=== PATIENT | female | born 1955 | race Caucasian/White ===

== ENCOUNTER → 2016-11-13 | Outpatient (CLI) | payer BC ==
[~2016-11-13] MED LIST: SYNTHROID0.05 MG/TA PO; TEGRETOL 1100 MG/TAB PO
== END ==
LOC: COL.RAD 09:31
DX: N94.9 Unspecified condition associated with female genital organs and menstrual cycle (principal); N94.10 Unspecified dyspareunia; K76.89 Other specified diseases of liver; N83.9 Noninflammatory disorder of ovary, fallopian tube and broad ligament, unspecified

== ENCOUNTER → 2016-12-01 | Outpatient (CLI) | payer BC | LOC: COL.CARD 16:49 | DX: Z01.810 Encounter for preprocedural cardiovascular examination (principal); Z01.812 Encounter for preprocedural laboratory examination; R19.09 Other intra-abdominal and pelvic swelling, mass and lump ==

== ENCOUNTER → 2017-06-18 | Outpatient (CLI) | payer BC | LOC: COL.RAD 06-11 08:00 | DX: C56.1 Malignant neoplasm of right ovary (principal) ==

== ENCOUNTER → 2017-09-17 | Outpatient (CLI) | payer BC | LOC: MC.RAD 08-06 11:00 | DX: Z12.31 Encounter for screening mammogram for malignant neoplasm of breast (principal) ==

== ENCOUNTER → 2019-07-04 | Outpatient (CLI) | payer BC | LOC: MC.RAD 11:03 | DX: Z12.31 Encounter for screening mammogram for malignant neoplasm of breast (principal) ==

== ENCOUNTER 2019-09-05 07:45 | Day surgery (SDC) | payer BC ==
[~2019-09-05] VITALS: Ht 154.9 cm; Wt 52.7 kg
[2019-09-05 08:13] VITALS: BP 114/72; PULSE 75; TEMP 97.6
[2019-09-05] MEDS ORDERED: [UNRECOGNIZED DRUG - OTHER] PO (08:35)
[2019-09-05] MEDS ORDERED: D3-5050000 IU PO (08:36)
[2019-09-05] MEDS ORDERED: CALCIUM CARBON650 M2 PO (08:36)
[2019-09-05] MEDS ORDERED: ASPIRIN 81M81 MG/TA2 PO (08:37)
[2019-09-05] MEDS ORDERED: ZOLOFT 25MG25 MG PO (08:37)
[2019-09-05 10:00] VITALS: BP 108/68; PULSE 70
[2019-09-05 10:15] VITALS: BP 119/65; PULSE 78
[2019-09-05 10:30] VITALS: BP 105/58; PULSE 65
== END 2019-09-05 10:49 | disposition home or self-care (01) ==
LOC: SDCO 07:45
DX: K59.00 Constipation, unspecified (principal); K64.0 First degree hemorrhoids; K44.9 Diaphragmatic hernia without obstruction or gangrene; K29.30 Chronic superficial gastritis without bleeding; G50.0 Trigeminal neuralgia; Z90.721 Acquired absence of ovaries, unilateral; Z90.710 Acquired absence of both cervix and uterus; Z79.82 Long term (current) use of aspirin; Z86.010 Personal history of colon polyps; Z85.43 Personal history of malignant neoplasm of ovary
CPT/HCPCS: J2250; J2405; J3010; J7030

== ENCOUNTER → 2021-01-02 | Outpatient (CLI) | payer MEDICARE, OTHER ==
[~2021-01-02] MED LIST changes: +ASPIRIN 81M81 MG/TA2 PO; +CALCIUM CARBON650 M2 PO; +D3-5050000 IU PO; +ZOLOFT 25MG25 MG PO; +[UNRECOGNIZED DRUG - OTHER] PO
== END ==
LOC: MC.RAD 09:52
DX: M79.622 Pain in left upper arm (principal); R07.89 Other chest pain; N64.89 Other specified disorders of breast; M79.89 Other specified soft tissue disorders

== ENCOUNTER → 2021-07-14 | Outpatient (CLI) | payer MEDICARE, OTHER | LOC: COL.RAD 07-11 11:30 | DX: Z01.812 Encounter for preprocedural laboratory examination (principal); R93.3 Abnormal findings on diagnostic imaging of other parts of digestive tract | CPT/HCPCS: Q9967 ==

== ENCOUNTER → 2021-08-28 | Outpatient (CLI) | payer MEDICARE, OTHER | LOC: MC.RAD 08:25 | DX: M79.622 Pain in left upper arm (principal) ==